=== PATIENT | female | born 1965 | race Caucasian/White ===

== ENCOUNTER 2022-07-30 10:22 | Outpatient (CLI) | payer BC | END 2022-07-30 10:23 | disposition home or self-care (01) | LOC: CSHMAMMO 10:22 | PROVIDERS: ATTEND Nurse Practitioner Family | DX: Z12.31 Encounter for screening mammogram for malignant neoplasm of breast (principal); N63.20 Unspecified lump in the left breast, unspecified quadrant; Z98.82 Breast implant status | CPT/HCPCS: 77063; 77067 ==

== ENCOUNTER 2023-10-05 13:48 | Outpatient (CLI) | payer BC | END 2023-10-05 13:49 | disposition home or self-care (01) | LOC: CSHMAMMO 13:48 | PROVIDERS: ATTEND Nurse Practitioner Family | DX: Z12.31 Encounter for screening mammogram for malignant neoplasm of breast (principal); Z98.82 Breast implant status | CPT/HCPCS: 77063; 77067 ==